=== PATIENT | female | born 1960 | race Caucasian/White ===

== ENCOUNTER 2017-04-12 18:59 | Emergency (ER) | payer OTHER ==
[~2017-04-12] VITALS: Ht 154.9 cm; Wt 63.5 kg
[~2017-04-12 18:59] MED LIST: AMLO-512 PO; ASPI81TA33 PO; ATOR20TA65 PO; CLIN150C10 PO; LISI10TA7 PO; NITR0.4T SL; OMEP20CA10 PO
[2017-04-12] MEDS ORDERED: ASPIRIN 81 MG CHEWABLE TABLET PO ONE (20:30)
[2017-04-12] MEDS ORDERED: LISI-662 PO (20:31)
[2017-04-12 20:56] LABS: HEMATOCRIT 38.7 % (36-46); HEMOGLOBIN 13.1 g/dL (12.0-16.0); MEAN CORPUSCULAR HEMOGLOBIN 30.3 pg (26.0-34.0); MEAN CORPUSCULAR VOLUME 89 fL (80-100); PLATELET COUNT (AUTO) 193 K/uL (150-450); RED BLOOD CELL COUNT(AUTO) 4.33 MIL/uL (4.00-5.20); RED CELL DISTRIBUTION WIDTH 13.9 % (11.5-14.5); WHITE BLOOD COUNT (AUTO) 9.2 K/uL (4.5-11.0)
[2017-04-12 20:58] LABS: CREATININE 1.24 mg/dL (0.60-1.30); POTASSIUM 3.6 mmol/L (3.5-5.1)
[2017-04-12 21:04] LABS: BILIRUBIN,TOTAL 0.4 mg/dL (0.1-1.0); TOTAL PROTEIN, SERUM 7.2 g/dL (6.4-8.2)
[2017-04-12 21:20] LABS: BAND NEUTROPHILS % (MANUAL) 6 % (1-5); EOSINOPHILS % (MANUAL) 7 % (1-6); LYMPHOCYTES % (MANUAL) 42 % (22-44); RBC MORPHOLOGY COMMENT NORMAL RBC MORPH; TOTAL CELLS COUNTED 100
[2017-04-12] MEDS ORDERED: TraMADol HCL 50 MG TABLET PO ONE (21:30)
[2017-04-13 00:56] VITALS: BP 141/72
== END 2017-04-13 01:09 | disposition home or self-care (01) ==
LOC: EMS 19:01
DX: R07.89 Other chest pain (principal); M62.838 Other muscle spasm; E78.00 Pure hypercholesterolemia, unspecified; I10 Essential (primary) hypertension; N28.9 Disorder of kidney and ureter, unspecified
CPT/HCPCS: 93005; 99285

== ENCOUNTER 2017-11-23 19:29 | Emergency (ER) | payer OTHER ==
[~2017-11-23] VITALS: Ht 152.4 cm; Wt 65.0 kg
[~2017-11-23 19:29] MED LIST changes: -AMLO-512 PO; -ASPI81TA33 PO; -CLIN150C10 PO; +LISI-662 PO; -LISI10TA7 PO; -OMEP20CA10 PO
[2017-11-23] MEDS ORDERED: ASPI81TA39 PO (19:43)
[2017-11-23 20:13] LABS: BASOPHILS % (AUTO) 0.8 % (0.0-2.0); HEMATOCRIT 40.7 % (36-46); LYMPHOCYTES # (AUTO) 2.8 K/uL (1.0-4.8); MEAN CORPUSCULAR HEMOGLOBIN 29.7 pg (26.0-34.0); MEAN CORPUSCULAR HGB CONC 34.5 G/dL (31.0-37.0); MEAN CORPUSCULAR VOLUME 86 fL (80-100); MONOCYTES # (AUTO) 0.8 K/uL (0.1-1.0); MONOCYTES % (AUTO) 9.2 % (2.0-9.0); NEUTROPHILS # (AUTO) 3.6 K/uL (1.8-7.7); NEUTROPHILS % (AUTO) 41.6 % (40.0-70.0); PLATELET COUNT (AUTO) 197 K/uL (150-450); RED BLOOD CELL COUNT(AUTO) 4.72 MIL/uL (4.00-5.20); RED CELL DISTRIBUTION WIDTH 13.8 % (11.5-14.5)
[2017-11-23 20:15] LABS: EOSINOPHILS % (AUTO) 15.4 % (1.0-6.0)
[2017-11-23 20:19] LABS: CALCIUM, TOTAL 9.4 mg/dL (8.8-10.5); CREATININE 1.03 mg/dL (0.60-1.30); POTASSIUM 3.7 mmol/L (3.5-5.1)
[2017-11-23 20:25] LABS: ALBUMIN 4.1 g/dL (3.4-5.0); BILIRUBIN,TOTAL 0.4 mg/dL (0.1-1.0); TOTAL PROTEIN, SERUM 7.3 g/dL (6.4-8.2)
[2017-11-23] MEDS ORDERED: LORazepam 1 MG TABLET PO ONE (21:15)
[2017-11-23] MEDS ORDERED: PROPRANOLOL HCL 10 MG TABLET PO ONE (21:15)
[2017-11-23] MEDS ORDERED: LISINOPRIL 10 MG TABLET PO ONE (21:30)
[2017-11-23 21:31] VITALS: BP 160/78
== END 2017-11-23 21:33 | disposition home or self-care (01) ==
LOC: EMS 19:30
DX: F41.9 Anxiety disorder, unspecified (principal); I10 Essential (primary) hypertension; M54.2 Cervicalgia; E78.00 Pure hypercholesterolemia, unspecified; Z79.82 Long term (current) use of aspirin; Z79.899 Other long term (current) drug therapy
CPT/HCPCS: 93005; 99285